=== PATIENT | male | born 1985 | race American Indian/Alaskan Native ===

== ENCOUNTER 2018-11-28 00:05 | Emergency (ER) | payer MEDICAID, OTHER ==
[2018-11-28 00:38] LABS: Basophils % (Auto) 0.8 % (0.0-1.8); Eosinophils # (Auto) 0.3 K/mm3 (0.0-0.4); Hematocrit 48.4 % (35.5-45.6); Hemoglobin 16.6 gm/dl (11.8-15.2); Lymphocytes # (Auto) 1.9 K/mm3 (1.2-5.4); Lymphocytes % (Auto) 34.5 % (13.4-35.0); Mean Corpuscular HGB Conc 34 % (32-34); Mean Corpuscular Volume 87 fl (84-94); Monocytes # (Auto) 0.5 K/mm3 (0.0-0.8); Monocytes % (Auto) 8.5 % (0.0-7.3); Platelet Count 260 K/mm3 (140-440); Red Blood Count 5.54 M/mm3 (3.65-5.03); Red Cell Distribution Width 14.3 % (13.2-15.2)
[2018-11-28 00:50] LABS: BUN/Creatinine Ratio 14; Blood Urea Nitrogen 13 mg/dL (9-20); Calcium 9.3 mg/dL (8.4-10.2); Hemolysis Index 24
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
[2018-11-28 01:19] LABS: Bilirubin,Urine NEG (Negative); Blood,Urine NEG (Negative); Color,Urine Yellow (Yellow); Mucus,Urine FEW /HPF; Protein,Urine <15 mg/dL mg/dL (Negative)
[2018-11-28 01:28] LABS: Amphetamine Screen,Urine PRESUMPTIVE NEGATIVE; Benzodiazepines Screen,Urine PRESUMPTIVE NEGATIVE; Cocaine Screen,Urine PRESUMPTIVE NEGATIVE; Methadone Screen,Urine PRESUMPTIVE NEGATIVE; Opiate Screen,Urine PRESUMPTIVE NEGATIVE
[2018-11-28 02:10] LABS: Cannabinoid Screen,Urine PRESUMPTIVE POSITIVE
[2018-11-28] MEDS ORDERED: HABITROL TD PRN (12:33)
--- NOTE | 2018-11-28 14:52 | Consultation ---
History of Present Illness - Reason for Consult Consult date: 11/28/18 Reason for consult: Initial Psychiatric Evaluation - Chief Complaint Chief complaint: " Arguing with my mother" - History of Present Psychiatric Illness Patient is a 33-year-old male that presents to emergency room for bizarre behavior and patient was brought by police for mental evaluation. Police report states that the patient is paranoid and frantic and acting strange. Today the patient is calm and cooperative during the assessment. PPHx schizoaffective disorder, bipolar type ( 2009). He reports that he was involved in a verbal altercation with his mother, therefore he called the police and told them to come pick him up because he didn't have anywhere to go. Patient endorses paranoid delusions. He believes that someone wants to hurt him. He denies SI/HI's and A/VH's. He reports appropriate sleep and appetite. Per patient he is compliant with medication. Current Psychiatric Medications: Abilify 10mg po QAM ( "I've been taking Abilify for about 5 months"). Past Psychiatric History: Schizoaffective disorder, bipolar type ( 2009); more than 10 previous inpatient psychiatric hospitalization; outpatient psychiatrist - [facility]; no previous suicide attempt. Past Psychiatric Medication Trials: Depakote- effective, Risperdal- effective, Cogentin- effective. History of Trauma/Abuse: Patient denies sexual, physical, and mental abuse. History of Alcohol/Drug Abuse: Marijuana- daily, " 1-2 blunts daily," "smoke it"; last use- 11-25-18; first use- age 11; alcohol- " 1-2 beers daily," last use 11-25-18, first use- age 11. S postive for marijuana. Social History: 9th grade- highest level of education; no income; lives with mother; no children; single; no legal issues; good support system. History of Family History Psychiatric Illness/Substance Abuse: Patient denies. Medications and Allergies Allergies Allergy/AdvReac Type Severity Reaction Status Date / Time No Known Allergies Allergy Verified 11/25/14 02:52 Home Medications Medication Instructions Recorded Confirmed Last Taken Type Benztropine [Cogentin] 4 mg PO DAILY #30 tablet 11/25/14 Unknown Rx Ondansetron [Zofran Odt] 4 mg PO Q8HR #12 tab.rapdis 11/25/14 Unknown Rx risperiDONE [RisperDAL] 4 mg PO QDAY #30 tablet 11/25/14 Unknown Rx Active Meds: Active Medications Nicotine (Habitrol) 14 mg TD QDAY PRN PRN Reason: Anxiety Mental Status Exam - Vital signs Last Vital Signs Temp 97.8 F 11/28/18 08:31 Pulse 79 11/28/18 08:31 Resp 18 11/28/18 08:31 BP 117/71 11/28/18 08:31 Pulse Ox 99 11/28/18 08:31 - Exam Narrative exam: Mental Status Exam Appearance: calm, hospital attire ( green scrubs) Behavior: cooperative Speech: regular rate and tone Mood: " sluggish, tired" Affect: constricted Thought Process: circumstantial, delayed at times Thought Content: Patient denies SI/HI's, A/VH's; + delusions (paranoid) Motor Activity: sitting on bed Cognition: A/O x 3 Insight: variable Judgment: variable Results Result Diagrams: 11/28/18 00:16 11/28/18 00:21 Abnormal lab results 11/28/18 11/28/18 11/28/18 Range/Units 00:16 00:16 00:16 RBC 5.54 H (3.65-5.03) M/mm3 Hgb 16.6 H (11.8-15.2) gm/dl Hct 48.4 H (35.5-45.6) % [facility] % (Auto) 8.5 H (0.0-7.3) % Eos % (Auto) 5.0 H (0.0-4.3) % Glucose (75-100) mg/dL Salicylates < 0.3 L (2.8-20.0) mg/dL Acetaminophen < 5.0 L (10.0-30.0) ug/mL 11/28/18 Range/Units 00:21 RBC (3.65-5.03) M/mm3 Hgb (11.8-15.2) gm/dl Hct (35.5-45.6) % [facility] % (Auto) (0.0-7.3) % Eos % (Auto) (0.0-4.3) % Glucose 109 H (75-100) mg/dL Salicylates (2.8-20.0) mg/dL Acetaminophen (10.0-30.0) ug/mL All other labs normal. Assessment and Plan Assessment and plan: Impression: PPHx schizoaffective disorder. Psychosis unspecified. Today the patient is calm and cooperative during the assessment. Patient endorse paranoid delusions. UDS positive for marijuana. DDx: r/o drug induced psychosis Recommendation/Plan: 1. Continue 1013. 2. Start Abilify 5mg po QAM mood/psychosis. Discussed metabolic side effects of Abilify. Patient verbalizes understanding. Disposition: Will refer to inpatient psychiatric services. Will staff with Dr. Flor Ramirez.
[2018-11-28] MEDS: ABILIFY PO SCH (17:27)
[2018-11-29] MEDS: ABILIFY PO SCH ×2 (10:37→22:15)
--- NOTE | 2018-11-29 17:44 | Progress Note ---
Subjective - Reason for Consult Consult date: 11/29/18 Reason for consult: follow up - Chief Complaint Chief complaint: " I'm sleepy." Patient is a 33-year-old male that presents to emergency room for bizarre behavior and patient was brought by police for mental evaluation. Police report states that the patient is paranoid and frantic and acting strange. Today the patient is calm and cooperative during the assessment. PPHx schizoaffective disorder, bipolar type ( 2009). He reports that he was involved in a verbal altercation with his mother, therefore he called the police and told them to come pick him up because he didn't have anywhere to go. Patient endorses paranoid delusions. He denies SI/HI's and A/VH's. He reports appropriate sleep and appetite. Per patient he is compliant with medication. Mental Status Exam - Vital signs Last Vital Signs Temp 99.1 F 11/29/18 14:16 Pulse 73 11/29/18 14:16 Resp 18 11/29/18 14:16 BP 108/64 11/29/18 14:16 Pulse Ox 99 11/29/18 14:16 - Exam Narrative exam: Appearance: calm, hospital attire ( green scrubs) Behavior: cooperative Speech: regular rate and tone Mood: " sleepy" Affect: constricted Thought Process: circumstantial, delayed at times Thought Content: Patient denies SI/HI's, A/VH's; + delusions (paranoid) Motor Activity: sitting on bed Cognition: A/O x 3 Insight: variable Judgment: variable Assessment and Plan Impression: PPHx schizoaffective disorder. Psychosis unspecified. Today the patient is calm and cooperative during the assessment. Patient endorse paranoid delusions. UDS positive for marijuana. DDx: r/o drug induced psychosis Recommendation/Plan: 1. Continue 1013. 2. continue Abilify 5mg po QAM mood/psychosis. Discussed metabolic side effects of Abilify. Patient verbalizes understanding. Disposition: Will refer to inpatient psychiatric services. Will staff with Dr. Flor Ramirez.
[2018-11-29] MEDS ORDERED: ABILIFY PO SCH (22:00)
--- NOTE | 2018-11-30 18:04 | Progress Note ---
Subjective - Reason for Consult Consult date: 11/30/18 Reason for consult: follow up - Chief Complaint Chief complaint: " I'm good." Patient is a 33-year-old male that presents to emergency room for bizarre behavior and patient was brought by police for mental evaluation. Police report states that the patient is paranoid and frantic and acting strange. Today the patient is calm and cooperative during the assessment. PPHx schizoaffective disorder, bipolar type ( 2009). He reports that he was involved in a verbal altercation with his mother, therefore he called the police and told them to come pick him up because he didn't have anywhere to go. He denies SI/HI's and A/VH's. He reports appropriate sleep and appetite. Per patient he is compliant with medication. He laughs inappropriately intermittently. Mental Status Exam - Vital signs Last Vital Signs Temp 97.6 F 11/30/18 13:23 Pulse 67 11/30/18 13:23 Resp 18 11/30/18 13:23 BP 116/68 11/30/18 13:23 Pulse Ox 98 11/30/18 13:23 - Exam Narrative exam: Appearance: calm, hospital attire ( green scrubs) Behavior: cooperative Speech: regular rate and tone Mood: "good" Affect: constricted Thought Process: circumstantial, delayed at times Thought Content: Patient denies SI/HI's, A/VH's; + delusions (paranoid) Motor Activity: sitting on bed Cognition: A/O x 3 Insight: variable Judgment: variable Assessment and Plan Impression: PPHx schizoaffective disorder. Psychosis unspecified. Today the patient is calm and cooperative during the assessment. Patient endorse paranoid delusions. UDS positive for marijuana. DDx: r/o drug induced psychosis Recommendation/Plan: 1. Continue 1013. 2. continue Abilify 5mg po QAM mood/psychosis. Discussed metabolic side effects of Abilify. Patient verbalizes understanding. Disposition: referred to inpatient psychiatric services. [facility] accepted him but transport time is tbd. Will staff with Dr. Flor Ramirez.
[2018-11-30] MEDS: ABILIFY PO SCH (22:59)
[2018-12-01 01:28] VITALS: BP 117/79
== END 2018-12-01 01:40 ==
LOC: EEVIPCON 00:05 → ED 00:05
DX: F23 Brief psychotic disorder (principal)
CPT/HCPCS: 36415; 80048; 80307; 81001; 85025; 99285; G0480; 80320

== ENCOUNTER 2019-05-04 19:52 | Emergency (ER) | payer SELFPAY ==
--- NOTE | 2019-05-04 20:11 | Emergency Department Report ---
Blank Doc - Documentation Documentation: This is a 33-year-old male that presents with medication refill for psych. Mo ther stated patient has been very aggrasive. Deneis any SI/HI. This initial assessment/diagnostic orders/clinical plan/treatment(s) is/are subject to change based on patient's health status, clinical progression and re- assessment by fellow clinical providers in the ED. Further treatment and workup at subsequent clinical providers discretion. Patient/guardians urged not to elope from the ED as their condition may be serious if not clinically assessed and managed. Initial orders include: 1- Patient sent to MAIN ED for further evaluation and treatment 2- intelligence applications was notified to have patient be brought back [facility]. 3- RN was notified to keep patient as close range and observation until room available
--- NOTE | 2019-05-04 20:37 | Emergency Department Report ---
ED General Adult HPI - General Chief complaint: Psych Stated complaint: MH Time Seen by Provider: 05/04/19 20:10 Source: patient, family Mode of arrival: Ambulatory Limitations: No Limitations - History of Present Illness Initial comments: 33-year-old -[place] male with history of bipolar/schizophrenia presents emergency department complaining out of his medications for the last half weeks. States that he ran out of medications not taking small bump to the emergency department. I have a refill. Apparently YESTERDAY HE HAD AN EPISODE OF ANXIETY CONNECTING OUTPUTS TODAY IS CALM AND COOPERATIVE. HE REPORTS NO SUICIDAL OR HOMICIDAL IDEATION NO PSYCHOSIS. DENIES ANY CHEST PAIN, FEVER, CHILLS, SWEATS, ABDOMINAL PAIN, DIARRHEA. NO HEADACHE OR BLURRED VISION. Radiation: non-radiation Severity scale (0 -10): 0 Improves with: none Worsens with: medication (without his current medications Abilify) Associated Symptoms: denies: confusion, chest pain, cough, diaphoresis, loss of appetite, malaise, nausea/vomiting, shortness of breath, syncope, weakness - Related Data Previous Rx's Medication Instructions Recorded Last Taken Type Benztropine [Cogentin] 4 mg PO DAILY #30 tablet 11/25/14 Unknown Rx Ondansetron [Zofran Odt] 4 mg PO Q8HR #12 tab.rapdis 11/25/14 Unknown Rx risperiDONE [RisperDAL] 4 mg PO QDAY #30 tablet 11/25/14 Unknown Rx Allergies Allergy/AdvReac Type Severity Reaction Status Date / Time No Known Allergies Allergy Verified 11/25/14 02:52 ED Review of Systems ROS: Stated complaint: MH Other details as noted in HPI Comment: All other systems reviewed and negative ED Past Medical Hx - Past Medical History Hx Psychiatric Treatment: Yes (schizophrenia bipolar) - Social History Smoking Status: Never Smoker Substance Use Type: None - Medications Home Medications: Home Medications Medication Instructions Recorded Confirmed Last Taken Type Benztropine [Cogentin] 4 mg PO DAILY #30 tablet 11/25/14 Unknown Rx Ondansetron [Zofran Odt] 4 mg PO Q8HR #12 tab.rapdis 11/25/14 Unknown Rx risperiDONE [RisperDAL] 4 mg PO QDAY #30 tablet 11/25/14 Unknown Rx ED Physical Exam - General Limitations: No Limitations General appearance: alert, in no apparent distress - Head Head exam: Present: atraumatic, normocephalic - Eye Eye exam: Present: normal appearance, PERRL, EOMI Pupils: Present: normal accommodation - ENT ENT exam: Present: normal exam, normal orophraynx, mucous membranes moist - Neck Neck exam: Present: normal inspection - Respiratory Respiratory exam: Present: normal lung sounds bilaterally. Absent: respiratory distress - Cardiovascular Cardiovascular Exam: Present: regular rate, normal rhythm. Absent: systolic murmur, diastolic murmur, rubs, gallop - GI/Abdominal GI/Abdominal exam: Present: soft, normal bowel sounds. Absent: distended, tenderness, guarding, hyperactive bowel sounds, hypoactive bowel sounds, organomegaly - Rectal Rectal exam: Present: deferred - Extremities Exam Extremities exam: Present: normal inspection - Back Exam Back exam: Present: normal inspection - Neurological Exam Neurological exam: Present: alert, oriented X3, CN II-XII intact, normal gait - Psychiatric Psychiatric exam: Present: normal affect, normal mood. Absent: depressed, agitated, homicidal ideation, suicidal ideation, other (very cooperative jovial no distress) - Skin Skin exam: Present: warm, dry, intact, normal color. Absent: rash ED Course Vital Signs 05/04/19 19:56 Temperature 98.6 F Pulse Rate 93 H Respiratory 18 Rate Blood Pressure 123/77 O2 Sat by Pulse 96 Oximetry Critical care attestation.: If time is entered above; I have spent that time in minutes in the direct care of this critically ill patient, excluding procedure time. ED Disposition Clinical Impression: Medication refill, Mental health problem Disposition: DC-01 TO HOME OR SELFCARE Is pt being admited?: No Does the pt Need Aspirin: No Condition: Stable
[2019-05-04 20:38] LABS: Bilirubin,Urine NEG (Negative); Blood,Urine NEG (Negative); Color,Urine Yellow (Yellow); Mucus,Urine FEW /HPF; Protein,Urine <15 mg/dL mg/dL (Negative); Urobilinogen,Urine < 2.0 mg/dL (<2.0); WBC,Urine < 1.0 /HPF (0.0-6.0)
[2019-05-04 20:50] LABS: Basophils % (Auto) 0.8 % (0.0-1.8); Eosinophils # (Auto) 0.1 K/mm3 (0.0-0.4); Eosinophils % (Auto) 2.1 % (0.0-4.3); Hematocrit 49.2 % (35.5-45.6); Lymphocytes % (Auto) 31.1 % (13.4-35.0); Mean Corpuscular HGB Conc 33 % (32-34); Mean Corpuscular Volume 90 fl (84-94); Monocytes # (Auto) 0.5 K/mm3 (0.0-0.8); Monocytes % (Auto) 7.9 % (0.0-7.3); Platelet Count 302 K/mm3 (140-440); Red Blood Count 5.46 M/mm3 (3.65-5.03)
[2019-05-04 20:53] LABS: BUN/Creatinine Ratio 13; Blood Urea Nitrogen 12 mg/dL (9-20); Calcium 9.3 mg/dL (8.4-10.2); Hemolysis Index 19
[2019-05-04 20:55] LABS: Amphetamine Screen,Urine PRESUMPTIVE NEGATIVE; Benzodiazepines Screen,Urine PRESUMPTIVE NEGATIVE; Methadone Screen,Urine PRESUMPTIVE NEGATIVE; Opiate Screen,Urine PRESUMPTIVE NEGATIVE
[2019-05-04 21:14] LABS: Cannabinoid Screen,Urine PRESUMPTIVE POSITIVE; Cocaine Screen,Urine PRESUMPTIVE POSITIVE
[2019-05-05 03:09] VITALS: BP 110/65
== END 2019-05-05 05:20 | disposition home or self-care (01) ==
LOC: ED 19:52
DX: F31.9 Bipolar disorder, unspecified (principal); F41.9 Anxiety disorder, unspecified; F20.9 Schizophrenia, unspecified; Z76.0 Encounter for issue of repeat prescription; Z79.899 Other long term (current) drug therapy
CPT/HCPCS: 36415; 80048; 80307; 80320; 81001; 85025; 99284; G0480

== ENCOUNTER 2022-02-15 18:31 | Emergency (ER) | payer MEDICAID ==
[2022-02-15 18:43] VITALS: BP 118/78
--- NOTE | 2022-02-15 19:02 | Emergency Department Report ---
ED Psych HPI - General Chief Complaint: Psych Stated Complaint: PSYCH EVAL Time Seen by Provider: 02/15/22 18:48 Source: patient, EMS Mode of arrival: Stretcher - History of Present Illness Initial Comments: 36 yo male with h/o schizophrenia presents to the ED via EMS who were called by the police - Related Data Previous Rx's Medication Instructions Recorded Last Taken Type ARIPiprazole [Abilify] 30 mg PO DAILY #30 02/15/22 Unknown Rx Allergies Allergy/AdvReac Type Severity Reaction Status Date / Time No Known Allergies Allergy Verified 02/15/22 18:43 ED Review of Systems ROS: Stated complaint: PSYCH EVAL Other details as noted in HPI ED Past Medical Hx - Past Medical History Previous Medical History?: Yes Hx Psychiatric Treatment: Yes (schizophrenia bipolar) - Social History Smoking Status: Never Smoker Substance Use Type: None - Medications Home Medications: Home Medications Medication Instructions Recorded Confirmed Last Taken Type ARIPiprazole [Abilify] 30 mg PO DAILY #30 02/15/22 Unknown Rx ED Physical Exam - General Limitations: No Limitations General appearance: alert, in no apparent distress - Head Head exam: Present: atraumatic, normocephalic - Eye Eye exam: Present: normal appearance - ENT ENT exam: Present: mucous membranes moist - Neck Neck exam: Present: normal inspection - Respiratory Respiratory exam: Present: normal lung sounds bilaterally. Absent: respiratory distress - Cardiovascular Cardiovascular Exam: Present: normal rhythm, tachycardia. Absent: systolic m urmur, diastolic murmur, rubs, gallop - GI/Abdominal GI/Abdominal exam: Present: soft, normal bowel sounds - Rectal Rectal exam: Present: deferred - Extremities Exam Extremities exam: Present: normal inspection - Back Exam Back exam: Present: normal inspection - Neurological Exam Neurological exam: Present: alert, oriented X3 - Psychiatric Psychiatric exam: Present: normal affect, normal mood - Skin Skin exam: Present: warm, dry, intact, normal color. Absent: rash ED Course Vital Signs 02/15/22 18:39 Temperature 98.1 F Pulse Rate 112 H Respiratory 18 Rate Blood Pressure 118/78 [Left] O2 Sat by Pulse 97 Oximetry ED Medical Decision Making - Lab Data Result diagrams: 02/15/22 19:14 02/15/22 19:14 Critical care attestation.: If time is entered above; I have spent that time in minutes in the direct care of this critically ill patient, excluding procedure time. ED Disposition Clinical Impression: Medication refill Schizophrenia Qualifiers: Schizophrenia type: unspecified Qualified Code(s): F20.9 - Schizophrenia, unspecified Disposition: 01 HOME / SELF CARE / HOMELESS Is pt being admited?: No Does the pt Need Aspirin: No Condition: Stable Instructions: Schizophrenia Additional Instructions: Professional and Agency Contacts To help [facility](28/01) [place] Crisis Line: Suicide Prevention Line: Crisis Text Line: Text START to [phone] Emergency: 911 Outpatient COMM[facility] Behavioral Health Resources: [place]: [facility] [address], [place] [address] [place]: [address] [address] [place]: [facility] - [address] [place] [address] Saturday thru Saturday - 8am - 5pm [facility] Address: [address] [place] [address] [place]: [facility] Address: [address] [place] [address] Saturday thru Saturday- 7am-2pm [facility] Address: [address] [place] [address] Saturday thru Saturday: 8:30AM-5PM Prescriptions: ARIPiprazole [Abilify] 30 mg PO DAILY #30 Time of Disposition: 20:32
[2022-02-15 19:39] LABS: Basophils % (Auto) 0.8 % (0.0-1.8); Eosinophils # (Auto) 0.2 K/mm3 (0.0-0.4); Hematocrit 41.6 % (35.5-45.6); Hemoglobin 13.9 gm/dl (11.8-15.2); Lymphocytes # (Auto) 1.4 K/mm3 (1.2-5.4); Mean Corpuscular HGB Conc 33 % (32-34); Mean Corpuscular Volume 88 fl (84-94); Monocytes # (Auto) 0.5 K/mm3 (0.0-0.8); Monocytes % (Auto) 9.9 % (0.0-7.3); Platelet Count 326 K/mm3 (140-440); Red Blood Count 4.75 M/mm3 (3.65-5.03); Red Cell Distribution Width 14.1 % (13.2-15.2)
[2022-02-15 19:56] LABS: Alanine Aminotransferase 27 units/L (7-56); Albumin 4.1 g/dL (3.9-5); BUN/Creatinine Ratio 9; Blood Urea Nitrogen 9 mg/dL (9-20); Calcium 8.5 mg/dL (8.4-10.2); Hemolysis Index 8
== END 2022-02-15 22:00 | disposition home or self-care (01) ==
LOC: ED 18:31
DX: F20.9 Schizophrenia, unspecified (principal); Z76.0 Encounter for issue of repeat prescription
CPT/HCPCS: 36415; 80048; 80053; 80320; 85025; 99284; G0480